=== PATIENT | female | born 2000 | race Caucasian/White ===

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

== ENCOUNTER 2023-04-21 21:21 | Emergency (ER) | payer OTHER ==
[~2023-04-21] VITALS: Ht 157.5 cm; Wt 95.2 kg
[2023-04-21 21:41] VITALS: BP 146/102
== END 2023-04-21 22:20 | disposition home or self-care (01) ==
LOC: ER 21:21
DX: R07.89 Other chest pain (principal); Z79.899 Other long term (current) drug therapy
CPT/HCPCS: 93005; 93010; 99283-25

== ENCOUNTER 2024-08-11 20:49 | Emergency (ER) | payer BC, OTHER ==
[~2024-08-11] VITALS: Ht 160 cm; Wt 93.4 kg
[2024-08-11 20:55] VITALS: BP 147/99
[2024-08-11] MEDS ORDERED: HyDROXyzine HCl 25 MG Tab PO ONE (21:15)
[2024-08-11] MEDS ORDERED: HYDHCL25 PO (21:48)
== END 2024-08-11 21:53 | disposition home or self-care (01) ==
LOC: ER 20:49
DX: F41.0 Panic disorder [episodic paroxysmal anxiety] (principal)
CPT/HCPCS: 99282; A9270

== ENCOUNTER 2025-05-05 19:30 | Emergency (ER) | payer OTHER ==
[~2025-05-05] VITALS: Ht 160 cm; Wt 97.5 kg
[~2025-05-05 19:30] MED LIST changes: +HYDHCL25 PO
[2025-05-05 19:44] VITALS: BP 144/111
[2025-05-05] MEDS ORDERED: FAMO20 PO (20:10)
== END 2025-05-05 20:14 | disposition home or self-care (01) ==
LOC: ER 19:30
DX: K21.9 Gastro-esophageal reflux disease without esophagitis (principal); F41.9 Anxiety disorder, unspecified; Z59.89 Other problems related to housing and economic circumstances; Z79.899 Other long term (current) drug therapy
CPT/HCPCS: 99282; A9270